=== PATIENT | female | born 1960 | race Caucasian/White ===

== ENCOUNTER → 2016-08-29 | Outpatient (CLI) | payer MEDICARE ==
[~2016-08-29] MED LIST: ASPIRIN LO-DOSE81 MG PO; ASPIRIN325 MG PO; CELEBREX100 MG PO; CELEXA40 MG PO; DESYREL100 MG PO; ESTRACE(ESTRADIO1 MG PO; IMDUR30 MG PO; KLONOPIN1 MG PO; LOPRESSOR25 MG PO; NITROSTAT0.4 MG SL; NORCO 10-325 T1 EACH PO; NORVASC10 MG PO; PLAVIX75 MG PO; PRILOSEC20 MG PO; REQUIP1 MG PO; STOOL SOFTENER1 EACH PO; THERA-VITE W/ B1 TAB PO; WELLBUTRIN XL300 M1 PO; ZOCOR10 MG PO; [UNRECOGNIZED DRUG - OTHER] PO
[2016-08-29 15:39] LABS: BASOPHIL % 0.8 %; EOSINOPHIL # 0.2 K/uL (0.0-0.5); EOSINOPHIL % 6.2 %; HEMOGLOBIN 10.4 g/dL (10.0-15.0); IMMATURE GRANULOCYTE % 0.3 %; LYMPHOCYTE # 1.3 K/uL (0.8-4.0); LYMPHOCYTE % 37.1 %; MCH 31.3 pg (27.0-34.0); MCHC 30.6 gm/dL (32.0-36.5); MCV 102.4 fl (83.0-98.0); MONOCYTE # 0.3 K/uL (0.0-1.0); MONOCYTE % 9.6 %; MPV 9.7 fl (9.4-12.4); NEUTROPHIL # (ANC) 1.6 K/uL (1.8-7.8); NRBC % 0 /100WBC (0-0.00); PLATELET COUNT 240 K/uL (150-450); RBC 3.32 M/uL (3.50-5.50); WBC 3.6 K/uL (4.0-11.0)
[2016-08-29 15:51] LABS: BLOOD UREA NITROGEN 10 mg/dL (6-24); CALCIUM 7.8 mg/dL (8.5-10.5); CHLORIDE 108 mMol/L (96-110); CO2 26 mMol/L (22-32); CREATININE 0.8 mg/dL (0.5-1.1); ESTIMATED GFR (MDRD EQUATION) > 60; PHOSPHORUS 3.5 mg/dL (2.5-4.9); SODIUM 141 mMol/L (135-145)
== END | disposition disaster alternative care site (69) ==
LOC: LCNC 15:31
PROVIDERS: Internal Medicine Interventional Cardiology
DX: R07.9 Chest pain, unspecified (principal)

== ENCOUNTER 2016-09-05 07:57 | Outpatient (CLI) | payer MEDICARE, SELFPAY ==
[~2016-09-05] VITALS: Ht 157.5 cm; Wt 75.0 kg
--- NOTE | ~2016-09-05 | CATH ---
Cardiac Diagnostic + PCI Report Demographics Patient Name LEO Kemp Gender Female Date of 1960 Age 56 year(s) Patient Number [id number] Date of Study 09/05/2016 Visit Number [id number] Room Number G6[address] [place] [id number] Ht 157.48 cm Wt 72.8 kg Referring Jeremy Orozco MD Primary Physician Physician Performing Jeremy Orozco MD Secondary Physician Physician Diagnostic Jeremy Orozco MD Assisting Physician Physician Interventional Jeremy Orozco MD Physician First Grade Teacher Physician Findings and Conclusions Diagnostic Findings and Conclusion 1 vessel CAD Diagnostic Recommendations PCI of LCx Interventional Findings and Conclusion Successful PCI of LCx 0.014 Prowater 3 x 15 Emerge to 3.25 3.25 x 12 Emerge to 3.41 Interventional Recommendations Continue Plavix and aspirin. Routine post angioseal. Risk factor modification. Procedure Description The patient was brought to the diagnostic cardiac catheterization-EP laboratory in the fasting, non-sedated state. Informed consent was obtained in the written and verbal form after the risks and benefits were explained. The patient had no further questions and agreed to proceed. The planned puncture-incision site(s) were shaved and prepped with ChloraPrep and draped in the usual sterile manner. Conscious sedation, supplemental oxygen, and pain control medications were delivered by a registered nurse under physician guidance. Surface ECG rhythm, blood pressure measurement, and pulse oximetry were monitored throughout the procedure. Arterial access. The access site was infiltrated with lidocaine. The vessel was entered with the Seldinger technique. A sheath was advanced into the vessel and used for catheter placement. Selective left coronary angiography. A catheter was advanced into the left coronary vessel ostium under Fluoroscopic guidance. Contrast was injected by hand. Images were obtained in multiple projections. Selective right coronary angiography. A catheter was advanced into the right coronary vessel ostium under fluoroscopic guidance. Contrast was injected by hand. Images were obtained in multiple projections. Left heart catheterization. A catheter was advanced across the aortic valve to the left ventricle under fluoroscopic guidance. Resting hemodynamics were obtained. Angioplasty: A guiding catheter was used to intubate the vessel. A 0.14 wire was used to cross the lesion. A balloon was positioned across the lesion and inflated. Post placement angiograms were performed. Arterial artery hemostasis was achieved. The patient was transferred to a regular nursing floor via cart accompanied by a nurse. The patient left the laboratory in stable condition. Diagnostic Cath Status: Elective Interventional Cath Status: Elective Procedure Procedure Type Diagnostic procedure:Angiography:, Coronary Angios w/[facility] PCI procedure:PTCA:, CFX Indications: Chest pain. The procedure was explained in detail to the patient. Risks, complications and alternative treatments were reviewed. Written consent was obtained. Medications Reviewed with Patient prior to Procedure. Angiographic Findings Dominance: Mixed Cardiac Arteries and Lesion Findings LMCA: Normal (0% Stenosis).Large normal. LAD: LAD medium, mild plaque. Diagonal 1 small Diagonal 2 medium ok There is a previous stent on Prox LAD Distal subsection. LCx: Circumflex medium, AV groove in-stent restenosis. OM1 small. There is a previous stent on 2nd Ob [place] Mid subsection. There is a previous stent on 2nd Ob [place] Mid subsection. There is a previous stent on Mid CX. Lesion on Mid CX: 99% stenosis 15 mm length reduced to 0%. Pre procedure WES II flow was noted. Post Procedure WES III flow was present. The guidewire cross was successful.The lesion was diagnosed as a moderate risk lesion.Culprit lesion. The lesion was previously treated with the following techniques: stent unknown type. This is in-stentrestenosis. Treatment results:Interventional treatment was successful. Devices used - Prowater Wire .014 x 180. Number of passes: 1. - Emerge Balloon 3.0 x 15. 3 inflation(s) to a max pressure of: 14 theresa. - Emerge Balloon 3.25 x 12. 2 inflation(s) to a max pressure of: 12 theresa. Lesion on 1st Ob [place]: Ostial.60% stenosis . RCA: RCA medium, dominant, ok. PL medium ok. PDA medium. Lesion on R PDA: Ostial.60% stenosis . Comments:50-60% Coronary Tree Procedure Data Procedure Date Date: 09/05/2016Start: 09:11 AMEnd: 09:53 AM Entry Locations - Retrograde Percutaneous access was performed through the Right Femoral artery (Primary location). A 6 Fr sheath was inserted. Hemostasis was successfully obtained using Angio-Seal STS PLUS ([place]). Closure Comments: Deployed by Ale. Procedure Medications Order and Administration + + + + + !Time !Medication !Dosage !Route ! + + + + + !09/05/2016 09:09 !Versed !1 mg !I.V. ! !AM ! ! ! ! + + + + + !09/05/2016 09:12 !Versed !1 mg !I.V. ! !AM ! ! ! ! + + + + + !09/05/2016 09:10 !Fentanyl !50 mcg !I.V. ! !AM ! ! ! ! + + + + + !09/05/2016 09:18 !Angiomax (Bivalirudin) !55 mg !I.V. bolus ! !AM !(ACC_5) ! ! ! + + + + + !09/05/2016 09:28 !Nipride !60 mcg !I.C. ! !AM ! ! ! ! + + + + + !09/05/2016 09:19 !Angiomax (Bivalirudin) !1.75 mg/kg/hr!I.V. bolus ! !AM !(ACC_5) ! ! ! + + + + + !09/05/2016 09:34 !Angiomax (Bivalirudin) !1.75 !I.V. bolus ! !AM !(ACC_5) ! ! ! + + + + + !09/05/2016 09:39 !Nitroglycerin !5 mcg/min !I.V. drip ! !AM ! ! ! ! + + + + + Devices Used - A6 Fr. BS JL 4 Diag. Catheterwas used for:Left coronary angiography. - A6 Fr. BS JR 4 Diag. Catheterwas used for:Right coronary angiography. - A6 Fr. BS Angled Pigtail Diag. Catheterwas used for:LV Pressures. - A6 Fr. XB 3.5 Guide Catheterwas used for:Circumflex Intervention. Contrast Material - Isovue [id number] ml Fluoroscopy Time: Diagnostic: 8:18 minutes. Total: 8:18 minutes. Fluoroscopy Dose: Diagnostic: 584 mGy. Total: 584 mGy. Estimated Blood Loss: [address] [facility] PCI Information PCI Indication:PCI for high risk Non-STEMI or unstable angina. Medical History Allergies - Penicillin. - Other:(hydroxycholoroquenil). - Penicillin. - Other:(hydroxychloroquine). Risk Factors The patient risk factors include:prior PCI;treated hypercholesterolemia, treated hypertension, last creatinine: 0.8 mg/dl, creatinine clearance: 90.24 ml/min, dyslipidemia and former tobacco use. Admission Data Admission Date: 09/05/2016 Admission Time: 07:57 AM Admit Source: Other Insurance Payors: Medicare. Admission Medications + +------+------+ + + + + !Medication !Dosage!Times !Last !Last !Administered !Comments ! ! ! !Per !Delivery !Delivery ! ! ! ! ! !Day !Date !Time ! ! ! + +------+------+ + + + + !Aspirin ! ! ! ! !Yes ! ! !(any) ! ! ! ! ! ! ! + +------+------+ + + + + !Clopidogrel ! ! ! ! !Yes ! ! + +------+------+ + + + + !Beta Diego! ! ! ! !Yes ! ! !(any) ! ! ! ! ! ! ! + +------+------+ + + + + Clinical Evaluation Leading to Procedure - The patient's CAD presentation was assessed as: Unstable angina. - The patient's anginal syndrome during the past two weeks was assessed as: Class III according to the [place] Cardi[employer] Classification System (CCS). Anti-anginal medications were prescribed during the past two weeks. The medication is: Beta Blockers. Hemodynamics Condition: Rest O2 Consumption: Estimated: 161.41Heart Rate: 62 bpm Pressures (mmHg) +-----+ + !Site !Pressure ! +-----+ + !AO !104/56 (75) ! +-----+ + !LV !114/4 ,12 ! +-----+ + !LV !106/4 ,10 ! +-----+ + !AO !115/60 (84) ! +-----+ + !LV !110/2 ,12 ! +-----+ + !AO !139/86 (111) ! +-----+ + Valve Gradients and Areas + +---------+---------+---------+ +---------+ + !Valve !Peak !Mean !Area !Index !Flow !Source ! + +---------+---------+---------+ +---------+ + !Aortic !0 !0 ! ! ! ! ! + +---------+---------+---------+ +---------+ + !Aortic !0 !0 ! ! ! ! ! + +---------+---------+---------+ +---------+ + Shunts Oxygen Values O2 Capacity 141.44 O2 Consumption 161.41 Signatures dtt: Ernesto Luna (cardio) dtd: 09/05/16 0911 Physician Self Edit
--- NOTE | 2016-09-05 16:20 | NUR ---
Significant Event: A/O X 3. SCHEDULED HEART CATH: BALLOONED STENT IN THE CIRC. VIA RT. GROIN. SITE: SOFT, DRESSING C/D/I. DENIES GROIN PAIN. HAS HX: OF BACK SURGERIES. GIVEN NORCO 2 TABS FOR BACK PAIN, WITH RELIEF. AFEBRILE. HR 50-60'S. ON NITRO GTT OVERNIGHT PER DR. VELIZ ORDER. SBP >90. Follow up: CONT. TO MONITER CARDIAC STATUS. PLAN DISM. TOMORROW.
--- NOTE | 2016-09-06 04:21 | NUR ---
Significant Event: Patient alert and oriented x3. SBP 80s-110s. All other vital signs stable. On RA. Nitro gtt held since 013 for SBPs <90. NS TKO. Complaints of chronic back pain throughout shift. Festus given x3 with relief. Complaints of dull chest pain on and off throughout shift. Dr. Luna notified. Protonix x1 ordered. Will continue to monitor. Rt. groin site C/D/I. Pleasant and cooperative with all cares. Follow up: Will continue Nitro gtt as blood pressures allow. Dismissal today?
[2016-09-06 04:54] LABS: BASOPHIL % 0.8 %; EOSINOPHIL # 0.3 K/uL (0.0-0.5); EOSINOPHIL % 8.7 %; HEMATOCRIT 29.8 % (33.0-46.0); HEMOGLOBIN 9.1 g/dL (10.0-15.0); IMMATURE GRANULOCYTE % 0.5 %; LYMPHOCYTE # 1.3 K/uL (0.8-4.0); LYMPHOCYTE % 34.1 %; MCH 30.8 pg (27.0-34.0); MCHC 30.5 gm/dL (32.0-36.5); MONOCYTE # 0.4 K/uL (0.0-1.0); MONOCYTE % 10.8 %; MPV 9.7 fl (9.4-12.4); NEUTROPHIL # (ANC) 1.7 K/uL (1.8-7.8); NEUTROPHIL % 45.1 %; NRBC % 0 /100WBC (0-0.00); PLATELET COUNT 202 K/uL (150-450); RBC 2.95 M/uL (3.50-5.50); RDW-CV 13.2 % (11.9-14.6); WBC 3.8 K/uL (4.0-11.0)
[2016-09-06 05:13] LABS: ALBUMIN 2.6 gm/dL (3.5-5.0); ALK PHOS 42 IU/L (33-138); ALT 21 IU/L (12-78); ANION GAP 10.2 (10.0-19.0); AST 25 IU/L (10-40); BLOOD UREA NITROGEN 10 mg/dL (6-24); CALCIUM 7.7 mg/dL (8.5-10.5); CHLORIDE 109 mMol/L (96-110); CO2 27 mMol/L (22-32); CREATININE 0.7 mg/dL (0.5-1.1); ESTIMATED GFR (MDRD EQUATION) > 60; POTASSIUM 4.2 mMol/L (3.7-5.1); SODIUM 142 mMol/L (135-145); TOTAL BILIRUBIN 0.2 mg/dL (0.0-1.5); TOTAL PROTEIN 5.4 g/dL (6.0-8.4)
--- NOTE | 2016-09-06 10:59 | NUR ---
DISCHARGE: A/O X3. UP AD [place]. RIGHT GROIN SITE WITH BANDAID APPLIED. CSM WNL. RIGHT FA IV DC'D. DISCHARGE INSTRUCTIONS REVIEWED. POST CATH GROIN CARE INSTRUCTIONS REVIEWED. NO NEW MEDICATION CHANGES. NO FURTHER QUESTIONS. WALKED TO [facility] WITH RN. PATIENT'S BROTHER HERE TO PICK PATIENT UP @ 1010.
== END 2016-09-06 10:29 | disposition disaster alternative care site (69) ==
LOC: GPOC 07:57 → GPCU 07:57 → GPOC 08:00 → GPCU 10:22 → GPOC 16:00
PROVIDERS: Internal Medicine Interventional Cardiology
DX: R07.9 Chest pain, unspecified (principal); I25.10 Atherosclerotic heart disease of native coronary artery without angina pectoris; I10 Essential (primary) hypertension
CPT/HCPCS: C1725; C1760; C1769; C1887; J0583; J1644; J2001; J2250; J3010; J7030; J7060

== ENCOUNTER → 2016-09-19 | Outpatient (CLI) | payer MEDICARE, OTHER ==
[2016-09-19 16:39] LABS: ALBUMIN 3.3 gm/dL (3.5-5.0); BLOOD UREA NITROGEN 12 mg/dL (6-24); CALCIUM 8.4 mg/dL (8.5-10.5); CHLORIDE 107 mMol/L (96-110); CO2 28 mMol/L (22-32); CREATININE 0.7 mg/dL (0.5-1.1); ESTIMATED GFR (MDRD EQUATION) > 60; MAGNESIUM 2.1 mg/dL (1.8-2.6); SODIUM 140 mMol/L (135-145)
[2016-09-20 05:02] LABS: BASOPHIL % 0.9 %; EOSINOPHIL # 0.2 K/uL (0.0-0.5); EOSINOPHIL % 3.5 %; HEMATOCRIT 34.3 % (33.0-46.0); HEMOGLOBIN 10.8 g/dL (10.0-15.0); IMMATURE GRANULOCYTE % 0.2 %; LYMPHOCYTE # 1.5 K/uL (0.8-4.0); LYMPHOCYTE % 32.7 %; MCH 31.6 pg (27.0-34.0); MCHC 31.5 gm/dL (32.0-36.5); MCV 100.3 fl (83.0-98.0); MONOCYTE # 0.4 K/uL (0.0-1.0); MONOCYTE % 8.8 %; MPV 10.6 fl (9.4-12.4); NEUTROPHIL # (ANC) 2.4 K/uL (1.8-7.8); NEUTROPHIL % 53.9 %; NRBC % 0 /100WBC (0-0.00); RBC 3.42 M/uL (3.50-5.50); RDW-CV 13.1 % (11.9-14.6); WBC 4.5 K/uL (4.0-11.0)
[2016-09-20 05:06] LABS: PLATELET COUNT 297 K/uL (150-450)
== END | disposition disaster alternative care site (69) ==
LOC: LCNC 16:18
PROVIDERS: Internal Medicine Interventional Cardiology
DX: I25.119 Atherosclerotic heart disease of native coronary artery with unspecified angina pectoris (principal)